=== PATIENT | female | born 1995 | race Caucasian/White ===

== ENCOUNTER 2019-08-19 12:53 | Emergency (ER) | payer BC ==
[~2019-08-19] VITALS: Ht 170.2 cm; Wt 72.7 kg
[2019-08-19 13:13] VITALS: BP 121/72; TEMP 98.9
[2019-08-19 16:15] VITALS: PULSE 70
[2019-08-19] MEDS ORDERED: PRENATAL TABLET PO (16:36)
== END 2019-08-19 16:40 | disposition home or self-care (01) ==
LOC: COL.ER 12:53
DX: O71.9 Obstetric trauma, unspecified (principal); Z3A.19 19 weeks gestation of pregnancy

== ENCOUNTER 2019-12-21 04:15 | Inpatient (IN) | payer BC ==
[~2019-12-21] VITALS: Ht 170.2 cm; Wt 83.2 kg
[2019-12-21] VITALS (36 sets, daily range): BP systolic 113–146; BP diastolic 45–90; PULSE 54–86; TEMP 97.9–98.9
[~2019-12-21 04:15] MED LIST: PRENATAL TABLET PO
--- NOTE | 2019-12-21 04:15 | NUR ---
Pt arrived on unit ambulatory escorted by and with complaints of contractions every 7 mins since 2200. Pt reports leaking of fluid sometimes clear and sometimes pink for approximately 1 week. Pt also reports normal movement. EFM and toco monitors started. Amnio-trace positive. SVE by this RN . Spoke with Dr. Davis regarding pt's arrival and complaints. Labor admission orders received. Plan of care reviewed with pt and at the bedside.
[2019-12-21 05:18] LABS: BASO % 0.2 % (0.0-2.0); EOS # 0.1 (0.0-0.7); EOS % 0.6 % (0-4.0); GRAN # 10.4 (1.4-6.5); GRAN % 71.9 % (42.2-75.2); HEMATOCRIT 37.3 % (37.0-47.0); HEMOGLOBIN 13.2 g/dl (12.5-16.0); LYMPH % 20.6 % (20.0-51.0); MEAN CELL VOLUME 91 fl (80.0-100.0); MEAN CORPUSCULAR HEMOGLOBIN 32 pg (27.0-31.0); MEAN CORPUSCULAR HGB CONC 35 g/dl (33.0-37.0); MEAN PLATELET VOLUME 11.6 fl (7.4-10.4); MONO # 0.8 (0.1-0.6); MONO % 5.7 % (1.7-9.3); PLATELET COUNT 281 K/mm3 (130-400); RED BLOOD COUNT 4.11 M/mm3 (4.10-5.30)
[2019-12-21 05:28] LABS: ALBUMIN 3.9 gm/dL (3.5-5.0); BILIRUBIN,TOTAL 0.4 mg/dL (0.0-1.0); CREATININE, serum 0.57 (0.52-1.25); TOTAL PROTEIN 7.4 gm/dL (6.4-8.2)
[2019-12-21 05:46] LABS: MUCOUS Present /lpf; PH 6 (5-8); SQUAMOUS EPITHELIAL None Seen /hpf; URINE APPEARANCE Clear; URINE BACTERIA None Seen /hpf; URINE BILIRUBIN Negative (NEGATIVE); URINE BLOOD Negative (NEGATIVE); URINE COLOR Yellow; URINE GLUCOSE Negative (NEGATIVE); URINE KETONE Negative (NEGATIVE); URINE LEUKOCYTE ESTERASE Negative (NEGATIVE); URINE NITRATE Negative (NEGATIVE); URINE PROTEIN(semi-quant) Negative (NEGATIVE); URINE RBC 0-2 /hpf; URINE UROBILINOGEN Negative (NEGATIVE); URINE WBC 0-2 /hpf
[2019-12-21 06:00] LABS: COLLECTION METHOD CLEAN CATCH
--- NOTE | 2019-12-21 06:20 | NUR ---
Patient requesting epidural and Celia HIDALGO called and notified. 0658: Patient sitting on edge of bed and Celia HIDALGO at bedside for epdidural. Difficulty tracing FHR due to maternal position. 0708: Single dose given and patient tolerates well. 0711: Test dose given and patient tolerates well. Patient repositioned and safety precations/plan of care discussed. 0745: Patient comfortable with epidural. Thomson catheter placed and patient tolerates well. 0750: SVE-9-//-1 Patient turned left lateral with right leg resting in stirrup. Dr. Daniels called and updated.
--- NOTE | 2019-12-21 09:30 | NUR ---
at bedside and SVE 10/100/0 and ruptures forebag with clear fluid noted and orders to begin pushing with patient. 0940: Pushing instructions gone over and patient begins to push with each contraction. 1000: FHR 125-130bpm and recurrent variable decelerations noted. 1040: Dr. Daniels called and updated/ orders to start pitocin at this time. 1045: Pitocin started at 2 mU per protocol. 1120: Variable decelerations noted. 1125: Dr. Daniels at bedside to assess progress and FHR strip. Patient continues to push with contractions and Dr. Daniels at nurses station. 1155: Thomson catheter removed and patient tolerates well. 1205: Dr. Daniels at bedside and pushes with patient and bed taken/patient prepped for vaginal delivery. Patient continues to push. 1210: Spontaneous vaginal delivery of viable male-head followed by body. Infant to patients abdomen and NJairo RN assumes care of . Cord clamped by physician and cut by FOB. Cord blood obtained. 1213: Spontaneous delivery of placenta and sent to Pathology for /PROM. Pitocin bolus started per protocol at 333mU. repairs laceration. Patient repositioned/ice pack to perineum/ fundal massage done/bleeding WNL/Firm. Plan of care discussed.
--- NOTE | 2019-12-21 14:28 | NUR ---
Patient on edge of bed and dangles feet. Epidural catheter removed and patient tolerates well. Patient to bathroom with standby assist and voids small amount. Pericare done/new gown/underwear/ice pack on. Patient ambulates to new room. Oriented to and plan of care discussed/questions answered.
[2019-12-22 00:55] VITALS: BP 122/82; PULSE 56; TEMP 97.3
[2019-12-22 07:01] LABS: BASO % 0.3 % (0.0-2.0); EOS # 0.1 (0.0-0.7); EOS % 0.5 % (0-4.0); GRAN # 10.8 (1.4-6.5); GRAN % 69.5 % (42.2-75.2); HEMOGLOBIN 12.1 g/dl (12.5-16.0); LYMPH # 3.5 (1.2-3.4); LYMPH % 22.4 % (20.0-51.0); MEAN CELL VOLUME 93 fl (80.0-100.0); MEAN CORPUSCULAR HEMOGLOBIN 32 pg (27.0-31.0); MEAN CORPUSCULAR HGB CONC 34 g/dl (33.0-37.0); MONO % 6.5 % (1.7-9.3); PLATELET COUNT 213 K/mm3 (130-400); RED BLOOD COUNT 3.82 M/mm3 (4.10-5.30); REDCELL DISTRIBUTION WIDTH-CV 12.1 % (11.5-14.5)
[2019-12-22 07:02] LABS: HEMATOCRIT 35.4 % (37.0-47.0)
[2019-12-22 08:00] VITALS: BP 121/79; PULSE 67; TEMP 97.7
[2019-12-22] MEDS ORDERED: IBU600 MG PO (08:15)
[2019-12-22 17:00] VITALS: BP 125/75; PULSE 59; TEMP 97.9
[2019-12-22 19:30] VITALS: BP 126/68; PULSE 59; TEMP 98.7
[2019-12-23 08:05] VITALS: BP 134/74; PULSE 60; TEMP 98.7
== END 2019-12-23 13:25 | disposition home or self-care (01) | DRG 806 ==
LOC: LDRO 04:15 → LDR 04:32 → OB 14:15
PROVIDERS: Obstetrics & Gynecology; ADMIT Obstetrics & Gynecology
PROC: 10E0XZZ Delivery of Products of Conception, External Approach (ICD-10-PCS; principal; 2019-12-21)
PROC: 0UQG7ZZ Repair Vagina, Via Natural or Artificial Opening (ICD-10-PCS; 2019-12-21)
DX: O42.113 Preterm premature rupture of membranes, onset of labor more than 24 hours following rupture, third trimester (principal); O71.4 Obstetric high vaginal laceration alone; Z37.0 Single live birth; Z3A.36 36 weeks gestation of pregnancy; O71.82 Other specified trauma to perineum and vulva
CPT/HCPCS: J2540; J2590; J2795; J7120

== ENCOUNTER 2020-09-12 09:54 | Emergency (ER) | payer SELFPAY ==
[~2020-09-12] VITALS: Ht 170.2 cm; Wt 66.4 kg
[~2020-09-12 09:54] MED LIST changes: +IBU600 MG PO
[2020-09-12 09:59] VITALS: TEMP 97.3
[2020-09-12 16:05] VITALS: BP 120/64; PULSE 60
== END 2020-09-12 16:05 | disposition home or self-care (01) ==
LOC: COL.ER 09:54
PROVIDERS: Nurse Practitioner
DX: T58.91XA Toxic effect of carbon monoxide from unspecified source, accidental (unintentional), initial encounter (principal)

== ENCOUNTER 2022-12-05 07:48 | Inpatient (IN) | payer MEDICAID ==
[~2022-12-05] VITALS: Ht 170.2 cm; Wt 86.4 kg
[2022-12-05] VITALS (13 sets, daily range): BP systolic 108–138; BP diastolic 50–89; PULSE 55–84; TEMP 97.5–98
--- NOTE | 2022-12-05 07:50 | NUR ---
PT ARRIVES AMBULATORY FROM HOME. STATES SHE HAS BEEN GRIFFIN ALL NIGHT AND "CANT TAKE IT ANYMORE". PT WAS ON UNIT LAST NIGHT A LABOR CHECK AND REPORTS SHE WAS DILATED TO A 3 WHEN SHE LEFT. PT MOANING AND UNABLE TO BREATHE THROUGH CONTRACTIONS. EFM TRACING CATEGORY 1. CONTRACTIONS FIRM Q3-5 MINUTES APART. SVE UPON ARRIVAL 8-9/100/-1. NOTIFIED, ADMIT ORDERS RECIEVED. PT DENIES LOF AND REPORTS POSITIVE MOVEMENT.
[2022-12-05 08:22] LABS: BASO % 0.2 % (0.0-2.0); EOS % 0.1 % (0.0-4.0); GRAN # 14.5 K/mm3 (1.4-6.5); GRAN % 86.5 % (42.2-75.2); HEMATOCRIT 37.7 % (37.0-47.0); HEMOGLOBIN 13.8 g/dl (12.5-16.0); LYMPH # 1.6 K/mm3 (1.2-3.4); LYMPH % 9.7 % (20.0-51.0); MEAN CELL VOLUME 88 fl (80.0-100.0); MEAN CORPUSCULAR HEMOGLOBIN 32 pg (27-31); MEAN CORPUSCULAR HGB CONC 37 g/dl (33.0-37.0); MEAN PLATELET VOLUME 10.4 fl (7.4-10.4); MONO # 0.5 K/mm3 (0.1-0.6); PLATELET COUNT 308 K/mm3 (130-400); RED BLOOD COUNT 4.28 M/mm3 (4.10-5.30); REDCELL DISTRIBUTION WIDTH-CV 12.3 % (11.5-14.5)
--- NOTE | 2022-12-05 08:25 | NUR ---
PT SITTING UP FOR EPIDURAL PLACEMENT. UPON SITTING PT SROM'S WITH CLEAR FLUID @ 0825. STARTS REPORTING URGE TO PUSH. ROCKY DIAZ PLACES A SPINAL AT THIS TIME, PT BACK TO LEFT WEDGE POSITION PER REQUEST. NOTIFIED. SEE PHYSICIAN NOTIFICATION.
[2022-12-06 00:50] VITALS: BP 116/54; PULSE 58; TEMP 97.7
[2022-12-06 04:00] VITALS: BP 118/60; PULSE 66; TEMP 97.7
[2022-12-06 07:30] LABS: HEMOGLOBIN 12.3 g/dl (12.5-16.0)
[2022-12-06 07:32] LABS: HEMATOCRIT 34.5 % (37.0-47.0)
[2022-12-06 08:30] VITALS: BP 130/57; PULSE 63; TEMP 97.8
[2022-12-06] MEDS ORDERED: IBU600 MG PO (08:37)
--- NOTE | 2022-12-06 09:37 | NUR ---
Initial visit; Parents, friend and brother of baby girl were awaiting baby sister to be brought into the room for brother to meet. Lap Regulator offered congratulations and God's blessings for the of baby girl.
== END 2022-12-06 11:25 | disposition home or self-care (01) | DRG 807 ==
LOC: LDRO 07:48 → LDR 08:23 → OB 12:00
PROVIDERS: Obstetrics & Gynecology; ADMIT Obstetrics & Gynecology
PROC: 10E0XZZ Delivery of Products of Conception, External Approach (ICD-10-PCS; principal; 2022-12-05)
DX: O76 Abnormality in fetal heart rate and rhythm complicating labor and delivery (principal); Z37.0 Single live birth; Z3A.39 39 weeks gestation of pregnancy; Z23 Encounter for immunization
CPT/HCPCS: J2590; J2795; J3010; J7120